=== PATIENT | male | born 1990 | race Caucasian/White ===

== ENCOUNTER 2017-07-13 08:32 | Emergency (ER) | payer OTHER ==
[2017-07-13 09:15] LABS: Basophils % (Auto) 0.8 % (0.0-1.8); Eosinophils % (Auto) 3.9 % (0.0-4.3); Hematocrit 44.4 % (35.5-45.6); Hemoglobin 15.2 gm/dl (11.8-15.2); Mean Corpuscular HGB Conc 34 % (32-34); Mean Corpuscular Hemoglobin 32 pg (28-32); Mean Corpuscular Volume 93 fl (84-94); Platelet Count 225 K/mm3 (140-440); Red Cell Distribution Width 13.2 % (13.2-15.2); White Blood Count 7.3 K/mm3 (4.5-11.0)
[2017-07-13 09:30] LABS: Anion Gap 18 mmol/L; BUN/Creatinine Ratio 21.42; Blood Urea Nitrogen 15 mg/dL (9-20); Calcium 8.8 mg/dL (8.4-10.2); Carbon Dioxide 25 mmol/L (22-30); Chloride 101.6 mmol/L (98-107); Glucose 91 mg/dL (75-100); Potassium 4.9 mmol/L (3.6-5.0); Sodium 140 mmol/L (137-145)
[2017-07-13 10:04] LABS: Partial Thromboplastin Time 26.9 Sec. (24.2-36.6)
--- NOTE | 2017-07-13 10:16 | Cat Scan Report ---
CT HEAD WITHOUT CONTRAST: HISTORY: Paresthesia in right side of face. Serial contiguous axial images were obtained through the cranium. Intravenous contrast material was not administered. The ventricles are normal in size and appearance. There is no mass effect or midline shift. No areas of abnormally increased or decreased attenuation are seen. No mass lesion is seen. 2 cm mucous retention cyst in the right maxillary sinus is noted. The remaining visualized paranasal sinuses and mastoid air cells are clear. IMPRESSION: Cranial CT scan within normal limits.
--- NOTE | 2017-07-13 10:18 | Cat Scan Report ---
CT NECK WITHOUT CONTRAST: HISTORY: Right sided paresthesia. TECHNIQUE: Helical CT following IV contrast. Sagittal and coronal reformatted images. FINDINGS: The parotid and submandibular glands are normal. The carotid sheaths are intact. There is no evidence of adenopathy within the neck. The thyroid gland is normal. The glottic structures are normal. The airway is patent. Strap musculature is unremarkable. Hyoid bone and thyroid cartilage are intact. There is mild reversal of the normal cervical lordosis with no significant degenerative disc disease. IMPRESSION: Unremarkable CT neck.
[2017-07-13] MEDS ORDERED: TYLENOL PO ONE (16:48)
[2017-07-13] MEDS ORDERED: MOTRIN PO ONE (16:50)
--- NOTE | 2017-07-13 16:50 | Emergency Department Report ---
ED General Adult HPI - General Chief complaint: Neuro Symptoms/Deficit Stated complaint: NEURO SYMPTOMS Time Seen by Provider: 07/13/17 16:14 Source: patient, RN notes reviewed Mode of arrival: Ambulatory Limitations: No Limitations - History of Present Illness Initial comments: This is a 20-year-old male. He is previously unknown to me. He currently does not have a primary care doctor. He reports a childhood history of purpura, and reports that he was informed that he should not take aspirin at that time. The patient presents to the ER with 2 weeks of right-sided paracervical neck pain, which radiates into the proximal occipital scalp, and one day of sensation of "ants crawling on the right side of my face." The right-sided paracervical neck pain occasionally radiates down the right upper extremity. The patient denies headache, midline neck pain, chest pain, shortness of breath , weakness, blurry vision, loss of vision, and he also denies bladder or bowel retention or incontinence, and he denies saddle anesthesia. The neck pain is sharp, increases with palpation, decreases with range of motion. There is no tinnitus, there is no change in auditory acuity, there are no vesicular lesions or symptoms don't have exacerbating or relieving factors except as previously noted. -: Gradual Location: face, neck Radiation: extremity Quality: burning Consistency: intermittent Improves with: none Worsens with: none Associated Symptoms: denies other symptoms - Related Data Previous Rx's Medication Instructions Recorded Last Taken Type Ibuprofen [Motrin] 600 mg PO Q8H PRN #30 tablet 07/13/17 Unknown Rx Allergies Allergy/AdvReac Type Severity Reaction Status Date / Time aspirin Allergy Unknown Verified 07/13/17 08:45 ED Review of Systems ROS: Stated complaint: NEURO SYMPTOMS Other details as noted in HPI Constitutional: denies: malaise Eyes: denies: vision change ENT: denies: epistaxis Respiratory: denies: cough Cardiovascular: denies: chest pain Gastrointestinal: denies: abdominal pain Genitourinary: denies: urgency Musculoskeletal: back pain, myalgia Skin: denies: lesions Neurological: paresthesias Psychiatric: denies: depression ED Past Medical Hx - Past Medical History Previous Medical History?: No - Surgical History Past Surgical History?: No - Social History Smoking Status: Never Smoker Substance Use Type: Alcohol - Medications Home Medications: Home Medications Medication Instructions Recorded Confirmed Last Taken Type Ibuprofen [Motrin] 600 mg PO Q8H PRN #30 tablet 07/13/17 Unknown Rx ED Physical Exam - General Limitations: No Limitations General appearance: alert, in no apparent distress - Head Head exam: Present: atraumatic, normocephalic - Eye Eye exam: Present: normal appearance, PERRL, EOMI. Absent: nystagmus - ENT ENT exam: Present: normal exam, normal orophraynx, mucous membranes moist, normal external ear exam - Neck Neck exam: Present: normal inspection, full ROM, other (no vesicles are noted. There is mild reproducible paracervical and postauricular tenderness. No adenopathy. No redness, pus or streaking). Absent: tenderness, meningismus, lymphadenopathy - Respiratory Respiratory exam: Present: normal lung sounds bilaterally. Absent: respiratory distress, wheezes, rales, rhonchi, stridor, chest wall tenderness, accessory muscle use, decreased breath sounds, prolonged expiratory - Cardiovascular Cardiovascular Exam: Present: regular rate, normal rhythm, normal heart sounds. Absent: bradycardia, tachycardia, irregular rhythm, systolic murmur, diastolic murmur, rubs, gallop - GI/Abdominal GI/Abdominal exam: Present: soft, normal bowel sounds. Absent: distended, tenderness, guarding, rebound, rigid, pulsatile mass - Rectal Rectal exam: Present: deferred - Extremities Exam Extremities exam: Present: normal inspection, full ROM, normal capillary refill. Absent: tenderness, pedal edema, joint swelling, calf tenderness - Back Exam Back exam: Present: normal inspection, full ROM. Absent: tenderness, CVA tenderness (R), CVA tenderness (L), muscle spasm, vertebral tenderness - Neurological Exam Neurological exam: Present: alert, oriented X3, normal gait, reflexes normal ( downgoing plantar reflexes), other (Extraocular movements intact. Tongue midline. No facial droop. Facial sensation intact to light touch in the V1, V2 , V3 distribution bilaterally. 5 and 5 strength in 4 extremities.. Sensation is intact to light touch in 4 extremities.). Absent: motor sensory deficit ( sensation intact to light touch, finger counting, proprioception and the bilateral upper and lower extremities.) - Psychiatric Psychiatric exam: Present: normal affect, normal mood - Skin Skin exam: Present: warm, dry, intact, normal color. Absent: rash ED Course Vital Signs 07/13/17 07/13/17 07/13/17 08:45 16:56 17:22 Temperature 98.8 F Pulse Rate 82 67 Respiratory 22 22 18 Rate Blood Pressure 142/79 Blood Pressure 132/81 [Left] O2 Sat by Pulse 100 99 99 Oximetry ED Medical Decision Making - Lab Data Result diagrams: 07/13/17 09:01 07/13/17 09:01 Vital Signs 07/13/17 07/13/17 08:45 16:56 Temperature 98.8 F Pulse Rate 82 67 Respiratory 22 22 Rate Blood Pressure 142/79 Blood Pressure 132/81 [Left] O2 Sat by Pulse 100 99 Oximetry Lab Results 07/13/17 07/13/17 07/13/17 Range/Units 09:01 09:01 09:01 WBC 7.3 (4.5-11.0) K/mm3 RBC 4.80 (3.65-5.03) M/mm3 Hgb 15.2 (11.8-15.2) gm/dl Hct 44.4 (35.5-45.6) % MCV 93 (84-94) fl MCH 32 (28-32) pg MCHC 34 (32-34) % RDW 13.2 (13.2-15.2) % Plt Count 225 (140-440) K/mm3 Lymph % (Auto) 34.7 (13.4-35.0) % [place] % (Auto) 7.4 H (0.0-7.3) % Eos % (Auto) 3.9 (0.0-4.3) % Baso % (Auto) 0.8 (0.0-1.8) % Lymph # 2.5 (1.2-5.4) K/mm3 [place] # 0.5 (0.0-0.8) K/mm3 Eos # 0.3 (0.0-0.4) K/mm3 Baso # 0.1 (0.0-0.1) K/mm3 Seg Neutrophils % 53.2 (40.0-70.0) % Seg Neutrophils # 3.9 (1.8-7.7) K/mm3 PT 13.1 (12.2-14.9) Sec. INR 1.00 (0.87-1.13) APTT 26.9 (24.2-36.6) Sec. Sodium 140 (137-145) mmol/L Potassium 4.9 (3.6-5.0) mmol/L Chloride 101.6 (98-107) mmol/L Carbon Dioxide 25 (22-30) mmol/L Anion Gap 18 mmol/L BUN 15 (9-20) mg/dL Creatinine 0.7 L (0.8-1.5) mg/dL Estimated GFR > 60 ml/min BUN/Creatinine Ratio 21.42 % Glucose 91 (75-100) mg/dL Calcium 8.8 (8.4-10.2) mg/dL - Radiology Data Radiology results: report reviewed, image reviewed Noncontrast CT scan of the brain is negative. Noncontrast CT scan of the cervical spine is negative - Medical Decision Making Differential diagnosis: Cervical radiculopathy, cranial neuropathy, peripheral neuropathy, zoster, multiple sclerosis Assessment and plan: 26-year-old male with 2 weeks of paracervical neck pain, and one day of sensation of "ants crawling on my face." He is afebrile, with reassuring vital signs, has a GCS of 15, with an NIH score of 0. There is no clinical indication of cellulitis or vesicular lesions, tympanic membranes are within normal limits, there is no mastoid tenderness. History and physical are not consistent with stroke, has an ABCD 2 score of 0. Highly unlikely to be cerebrovascular event. Symptoms going on for 2 weeks. The patient reports she can tolerate ibuprofen, and felt improved after ibuprofen. The patient will be discharged with nonnarcotic pain medication, and he is instructed to closely follow up with outpatient neurologist. He is reliable, understands plan of care , and will be discharged at this time. Critical care attestation.: If time is entered above; I have spent that time in minutes in the direct care of this critically ill patient, excluding procedure time. ED Disposition Clinical Impression: Dysesthesia of face Disposition: DC-01 TO HOME OR SELFCARE Is pt being admited?: No Does the pt Need Aspirin: No Condition: Good Additional Instructions: Take the pain medication with food as directed. Follow up with a primary care doctor or neurologist within the next 3-5 days. Return to the ER right away with new pain, worsened pain, migration of pain, fevers, chills, shortness of breath, confusion, intractable nausea or vomiting, inability to tolerate liquid feeds. Prescriptions: Ibuprofen [Motrin] 600 mg PO Q8H PRN #30 tablet PRN Reason: Pain Referrals: PRIMARY CARE, [Primary Care Provider] - 3-5 Days MAXIMILIANO VARGHESE MD [Staff Physician] - 3-5 Days MARYSE MCMULLEN MD [Staff Physician] - 3-5 Days ISAIAH CHASE MD [Staff Physician] - 3-5 Days CRISTI COLE MD [Staff Physician] - 3-5 Days
[2017-07-13 16:58] VITALS: BP 132/81
== END 2017-07-13 17:23 | disposition home or self-care (01) ==
LOC: ED 08:32
DX: R20.8 Other disturbances of skin sensation (principal)
CPT/HCPCS: 36415; 70450; 70490; 80048; 85025; 85610; 85730